=== PATIENT | female | born 1970 | race Caucasian/White ===

== ENCOUNTER 2017-02-05 21:59 | Emergency (ER) | payer MEDICARE ==
--- NOTE | ~2017-02-05 | CR21 ---
[facility] A Service of [facility] RADIOLOGY TEXT RESULTS PATIENT: BRAXTON RAMÍREZ LOCATION: SED : 72 UNIT #: [id number] AGE: [address]: Steven Wisdom SEX: F ORDER DR: [id number] [place] [id number] E MR#: [id number] Acc #: [id number] NAME: BRAXTON RAMÍREZ : 1970 SEX: F STUDY DATE/TIME: 02/05/2017 22:07 UNIT: SED ROOM: STUDY DESCRIPTION: CR Ankle Min 3 Views Rt Attending Physician: Steven Wisdom P.A.-C. Ordering Physician: Steven Wisdom P.A.-C. Primary Care Physician: Dian Melgar M.D. MEDICAL IMAGING REPORT This report is preliminary unless electronic signature is present. EXAM Right ankle 3 views. HISTORY Right leg infection, swelling x5 days. FINDINGS 3 views of the right ankle demonstrate marked soft tissue swelling edema about the lower leg and ankle with reticulation of the subcutaneous fat. No soft tissue gas identified. No radiopaque foreign body. 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 There is also mild arthritic changes midfoot. IMPRESSION Generalized soft tissue swelling and edema about the lower leg, foot and ankle. Findings are nonspecific but may reflect cellulitis. No soft tissue gas identified. No radiopaque foreign body. Dictated by... Cheyanne Vu M.D. THIS IS AN ELECTRONICALLY VERIFIED REPORT Cheyanne Vu M.D. at 02/06/2017 11:00 PM HESHAM/john TD: 02/06/2017 00:58 JOB #: [id number] MEDICAL IMAGING REPORT [facility] A Service of [facility] RADIOLOGY TEXT RESULTS PATIENT: BRAXTON RAMÍREZ LOCATION: SED : 72 UNIT #: [id number] AGE: [address]: Steven Wisdom SEX: F ORDER DR: Page 1 of 1
[~2017-02-05 21:59] MED LIST: AMITRYPTYLINE PO; BACTRIM 400-801 TA1 PO; BENADRYL PO; DICLOXAXILLIN250 MG PO; DOXYCYCLINE HY100 M1 PO; FLEXERIL10 MG PO; FORTAMET1000 MG/B1 PO; GABAPENTIN800 MG PO; HUMALOG100 U/M1; HUMULIN N100 U/ML; HYDROCORTISONE10 MG PO; KEFLEX500 M2 PO; LASIX20 MG PO; METHADONE HC10 MG/M1 PO; METHADOSE40 M1 PO; MICRO-K10 MEQ PO; NATURAL VITA100 UNIT; PHENERGAN25 MG PO; SARAFEM20 MG PO; SENNA LAXATIVE1 TAB PO; SYNTHROID75 MCG PO; ZINC30 MG
[2017-02-05 23:02] LABS: BASOPHIL# 0.1 X10e3 (0-0.3); BASOPHIL% 0.6 % (0-2.5); EOSINOPHIL# 0.1 X10e3 (0-0.7); EOSINOPHIL% 0.4 % (0.0-7.0); HEMOGLOBIN 10.3 gm/dL (12.0-16.0); LYMPHOCYTE# 0.9 X10e3 (1.0-3.5); LYMPHOCYTE% 7.1 % (17.0-45.0); MEAN CELL VOLUME 78.9 FL (83-96); MEAN CORPUSCULAR HEMOGLOBIN 24.5 PG (28-34); MEAN CORPUSCULAR HGB CONC 31.1 g/dL (30-36); MEAN PLATELET VOLUME 7.6 FL (6.5-11.5); MONOCYTE# 1.2 X10e3 (0-1.0); MONOCYTE% 9.6 % (3.0-12.0); NEUTROPHIL% 82.3 % (40-75); PLATELET COUNT 191 X10e3 (140-420); RED BLOOD COUNT 4.19 X10e (3.90-5.30); RED CELL DISTRIBUTION WIDTH 26.3 % (11.0-15.5); WHITE BLOOD COUNT 12.2 X10e3 (4.0-10.5)
[2017-02-05 23:04] LABS: DIFF IND NO
[2017-02-05 23:08] LABS: ALBUMIN SERUM 3.1 g/dL (3.5-5.0); BILIRUBIN, DIRECT 0.4 mg/dL (0.0-0.2); BILIRUBIN,INDIRECT 1.1 mg/dL (0.0-0.9); BILIRUBIN,TOTAL 1.5 mg/dL (0.2-2.0); CALCIUM SERUM 8.2 mg/dL (8.4-10.2); CREATININE SERUM 0.5 mg/dL (0.6-1.4); GLOM FILT RATE Estimated 116.9 mL/min (>60); PROTEIN TOTAL SERUM 7.4 g/dL (6.0-8.3)
[2017-02-06 00:05] LABS: SEDIMENTATION RATE-SW ONLY 68 mm/hr (0-30)
[2017-02-06 16:48] LABS: PROCALCITONIN 1.06 NG/ML
== END 2017-02-06 01:49 | disposition hospice, home (50) ==
LOC: SED 21:59
PROVIDERS: Physician Assistant
DX: L03.115 Cellulitis of right lower limb (principal); E10.40 Type 1 diabetes mellitus with diabetic neuropathy, unspecified; F17.210 Nicotine dependence, cigarettes, uncomplicated; Z90.49 Acquired absence of other specified parts of digestive tract; Z79.899 Other long term (current) drug therapy
CPT/HCPCS: 36415; 73610; 80048; 80076; 82308; 83605; 85025; 85651; 87040; 96365; 96375; 99285; J1170; J2405; J2543; J3370